=== PATIENT | female | born 2000 | race Caucasian/White ===

== ENCOUNTER 2022-09-17 13:12 | Emergency (ER) | payer OTHER, SELFPAY ==
[2022-09-17 13:13] VITALS: BP 121/76; PULSE 91; RESP 16; TEMP 36.9; O2SAT 100; BMI 23.3
--- NOTE | 2022-09-17 13:26 | US_ITS ---
INDICATION: bleeding HCG 28 EXAMINATION: Ultrasound US OB Transvaginal TECHNIQUE: Transvaginal (for optimal evaluation of the adnexa) pelvic ultrasound was performed. Grayscale, spectral waveform, and color flow Doppler evaluation of the adnexa. COMPARISON: None. LMP: [08/11/2022 Beta-hCG: Unknown FINDINGS: UTERUS: 8.3 x 5.0 x 3.7 cm. RIGHT OVARY: 4.3 x 2.5 x 2.3 cm. Normal. LEFT OVARY: 2.9 x 2.8 x 1.0 cm. Normal. FREE FLUID: Small amount in the cul-de-sac and right adnexa with echogenic debris. INTRAUTERINE GESTATIONAL SAC: None YOLK SAC: Not identified POLE: Not identified HEART MOTION: Not detected. US/Transvaginal w/Preg US IMPRESSION: No intrauterine . Findings represent of unknown location and ectopic cannot be entirely excluded. In a hemodynamically stable patient, a follow-up sonographic examination in 7-10 days in combination with serial beta hCG levels is recommended. Electronically Signed: Devan Nunes MD at 15:20 EDT ,
--- NOTE | 2022-09-17 13:27 | ED.VIS.FEGU ---
HPI <IRMA Mojica - Last Filed: 09/17/22 15:57> HPI - Female History of Present Illness Chief Complaint: Vag Bld, Preg Narrative Narrative: Patient presenting today with vaginal bleeding that started this morning. She states that the bleeding is mild in nature and she is only had to use 1 pad. However, 5 weeks ago she tested positive for with an at home test. She has not had any care up to this point. LMP was 08/11/22. She reports some mild pelvic cramping. She denies any fever, chills, abdominal pain, nausea, vomiting, dysuria. She is . She denies a PMH of any chronic health conditions. PFSH <IRMA Mojica - Last Filed: 09/17/22 15:57> PFSH Medical History No acute medical problems Home Medications NK 09/17/22 [History Last Taken Unknown] Allergy/AdvReac Type Severity Reaction Status Date / Time No Known Allergies Allergy Verified 09/17/22 13:19 Social History Smoking Status: Never smoker ROS <IRMA Mojica - Last Filed: 09/17/22 15:57> ROS ED Constitutional Constitutional ED: Denies chills or fever(s) Eyes Eyes: Denies blurry vision Cardiovascular Cardiovascular: Denies chest pain or palpitations Respiratory/Chest Respiratory/Chest: Denies cough or dyspnea Gastrointestinal Gastrointestinal: Denies abdominal pain, nausea or vomiting Genitourinary Genitourinary ED: Denies dysuria, hematuria or urinary urgency Musculoskeletal Musculoskeletal: Denies arthralgias or myalgias Integumentary Denies abscess, Abrasions or rash Neurologic Neurologic: Denies weakness Psychiatric Psychiatric: Denies anxiety, depression, suicidal ideation or suicidal thoughts EXAM <IRMA Mojica - Last Filed: 09/17/22 15:57> Physical Exam Const Vital Signs: 09/17/22 13:13 09/17/22 15:18 09/17/22 15:33 Temperature 98.4 F Temperature Source Temporal Pulse Rate 91 75 Respiratory Rate 16 16 16 Blood Pressure 121/76 H 110/60 Blood Pressure Mean 91 76 Pulse Ox 100 99 Oxygen Delivery Method Room Air Room Air Room Air Positive well nourished, well developed and no apparent distress General Appearance ED: well developed HEENT Reports normocephalic and head/scalp atraumatic Mouth ED: Yes moist mucous membranes normal Eyes PERRL and EOMs intact bilaterally Neck full ROM and supple Chest Wall inspection of chest normal Resp normal respiratory effort and clear to auscultation bilaterally Cardio regular rate and regular rhythm GI soft to palpation, non-tender, non-distended and no masses Back/Spine normal ROM and normal to inspection Extremity normal to inspection and full ROM Neuro oriented x3, CN's II-XII intact bilaterally, moves all extremities, no focal motor deficits and no sensory deficits noted Sensorium / Orientation: awake and alert Psych mental status grossly normal and thought process normal Skin no rashes or lesions noted and no wounds <Dr. Matt Bonilla MD - Last Filed: 09/17/22 15:07> Physical Exam Const Vital Signs: 09/17/22 13:13 09/17/22 15:18 09/17/22 15:33 Temperature 98.4 F Temperature Source Temporal Pulse Rate 91 75 Respiratory Rate 16 16 16 Blood Pressure 121/76 H 110/60 Blood Pressure Mean 91 76 Pulse Ox 100 99 Oxygen Delivery Method Room Air Room Air Room Air MDM <IRMA Mojica - Last Filed: 09/17/22 15:57> [facility] Narrative Medical decision making narrative: Patient presenting due to vaginal bleeding that started this morning. Patient does not have any abdominal pain or abdominal tenderness, concerns for ectopic is very low. She states she is around 5 weeks , has had no care up to this point. She is G1, P0. HCG quant will be obtained as well as ABO Rh factor and a transvaginal ultrasound. She is well-appearing and in no acute distress. Patient's quant was 28, however, ultrasound was still performed. Ultrasound suggest that follow-up sonographic examination be performed in 7 to 10 days. Patient does have an upcoming appointment with [facility] next week. I have encouraged her to keep this appointment and to follow-up with them. She has been instructed to return for any increase in bleeding or abdominal pain. Patient likely had a miscarriage. She will be discharged home in stable condition and is comfortable with plan. I have personally performed a face to face assessment of the patient and have reviewed the SERA Note. I performed a substantive portion of the visit including all aspects of the following. My giles findings include: History is 22-year-old female Ab0. Reportedly about 5 weeks . Today had vaginal spotting. No significant pain. No discharge. No dysuria. No care. Exam is [well-appearing 22-year-old female. Vital signs stable afebrile. HEENT exam normal. Lungs clear. Heart regular rhythm. Abdomen soft, nondistended, normal bowel sounds without peritoneal signs. There is no significant suprapubic tenderness.. She is moving all 4 extremities. Calves are nontender without edema. Neurologically she is awake and alert.] Medical Decision Making [22-year-old G1, P0 with reportedly and now having spotting. Consider threatened miscarriage versus requesting versus ectopic versus other. Placed] Other additions or changes: [Ultrasound pending. Blood type a positive. Quant was only 28. The patient will be discharged with outpatient follow-up to see [facility].] Lab Data Labs: Laboratory Results - last 24 hr 09/17/22 09/17/22 09/17/22 13:33 13:33 13:55 HCG, Quant Cancelled 28 H Blood Type Cancelled 09/17/22 13:55 HCG, Quant Blood Type A POSITIVE Radiography Diagnostic Testing: Clinical Impression(s) from Imaging Studies Obstetrics Ultrasound 09/17/22 13:26 IMPRESSION: No intrauterine . Findings represent of unknown location and ectopic cannot be entirely excluded. In a hemodynamically stable patient, a follow-up sonographic examination in 7-10 days in combination with serial beta hCG levels is recommended. Electronically Signed: Devan Nunes MD at 15:20 EDT , <Dr. Matt Bonilla MD - Last Filed: 09/17/22 15:07> [facility] Narrative Medical decision making narrative: Patient presenting due to vaginal bleeding that started this morning. She is around 5 weeks , has had no care up to this point. She is G1, P0. HCG quant will be obtained as well as ABO Rh factor and a transvaginal ultrasound. She is well-appearing and in no acute distress. I have personally performed a face to face assessment of the patient and have reviewed the SERA Note. I performed a substantive portion of the visit including all aspects of the following. My giles findings include: History is 22-year-old female Ab0. Reportedly about 5 weeks . Today had vaginal spotting. No significant pain. No discharge. No dysuria. No care. Exam is [well-appearing 22-year-old female. Vital signs stable afebrile. HEENT exam normal. Lungs clear. Heart regular rhythm. Abdomen soft, nondistended, normal bowel sounds without peritoneal signs. There is no significant suprapubic tenderness.. She is moving all 4 extremities. Calves are nontender without edema. Neurologically she is awake and alert.] Medical Decision Making [22-year-old G1, P0 with reportedly and now having spotting. Consider threatened miscarriage versus requesting versus ectopic versus other. Placed] Other additions or changes: [Ultrasound pending. Blood type a positive. Quant was only 28. The patient will be discharged with outpatient follow-up to see [facility].] Lab Data Labs: Laboratory Results - last 24 hr 09/17/22 09/17/22 09/17/22 13:33 13:33 13:55 HCG, Quant Cancelled 28 H Blood Type Cancelled 09/17/22 13:55 HCG, Quant Blood Type A POSITIVE Radiography Diagnostic Testing: Clinical Impression(s) from Imaging Studies Obstetrics Ultrasound 09/17/22 13:26 IMPRESSION: No intrauterine . Findings represent of unknown location and ectopic cannot be entirely excluded. In a hemodynamically stable patient, a follow-up sonographic examination in 7-10 days in combination with serial beta hCG levels is recommended. Electronically Signed: Devan Nunes MD at 15:20 EDT , Discharge Plan Triage Chief Complaint: Vag Bld, Preg ED Midlevel Provider: Brittany Dia ED Provider: Matt Bonilla Dx/Rx/DC Orders Clinical Impression: Miscarriage Instructions: ED Possible Miscarriage ... Prescriptions: No Action NK Primary Care Provider: Care Physician,No Primary Referrals: Purvi Tariq DO [Med Staff - Active Staff] - 3-5 Days Care Physician,No Primary [Primary Care Provider] - Activity Restrictions/Additional Instructions: Please follow-up with [facility] and return for any worsening of symptoms such as increased bleeding, abdominal pain/pelvic pain. Disposition Disposition: Home, Self Care Discharge Date/Time: 09/17/22 15:34
[2022-09-17 14:24] LABS: hCG Titer Quant., Serum 28 mIU/mL (1-3)
[2022-09-17 15:18] VITALS: RESP 16
[2022-09-17 15:33] VITALS: BP 110/60; PULSE 75; RESP 16; O2SAT 99
== END 2022-09-17 15:34 | disposition home or self-care (01) ==
PROVIDERS: Emergency Provider Emergency Medicine; Visit Provider Emergency Medicine
DX: O03.9 Complete or unspecified spontaneous abortion without complication (principal)
CPT/HCPCS: 76817; 84702; 86900; 86901; 99282; A4216

== ENCOUNTER → 2022-09-21 | Outpatient (CLI) | payer SELFPAY ==
[2022-09-21 11:20] LABS: hCG Titer Quant., Serum 2 mIU/mL (1-3)
== END | disposition home or self-care (01) ==
LOC: LAB 08:25
PROVIDERS: Referring Provider Obstetrics & Gynecology; Visit Provider Obstetrics & Gynecology
DX: O03.9 Complete or unspecified spontaneous abortion without complication (principal)
CPT/HCPCS: 36415; 84702